=== PATIENT | female | born 1975 | race Caucasian/White ===

== ENCOUNTER 2017-08-30 18:59 | Emergency (ER) | payer BC ==
[2017-08-30] MEDS ORDERED: ACETAMINOPHEN 325 MG TABLET PO ONE (19:10)
[2017-08-30] MEDS ORDERED: ACETAMINOPHEN 325 MG TABLET ONE (19:50)
[2017-08-30] MEDS ORDERED: ONDANSETRON HCL INJ/PF 4 MG/2 ML SDV IV ONE (20:11)
[2017-08-30] MEDS ORDERED: KETOROLAC TROMETHAMINE INJ/PF 30 MG/1 ML SDV IV ONE (20:11)
[2017-08-30] MEDS ORDERED: MORPHINE SULFATE 10 MG/ML INJ IV ONE ×2 (20:11→23:34)
--- NOTE | 2017-08-30 20:14 | ER Document Report ---
ED General - General Chief Complaint: Abdominal Pain Stated Complaint: ABDOMINAL PAIN Time Seen by Provider: 08/30/17 20:03 TRAVEL OUTSIDE OF THE [place] IN LAST 30 DAYS: No - HPI Notes: Patient is a 42-year-old female no significant past medical history who presents to the ED complaining of right lower abdominal pain, occasional right back pain, pain with urination 1 day. Patient also has associated nausea without vomiting. Patient states that her symptoms started pretty quickly last night. Patient states that her pain is intermittent and comes in waves. Patient states that urinating makes her pain worse. She has not noticed any other blood in her urine. She denies any surgical history to her abdomen. She is still able to eat and drink, but does have a decreased p.o. intake. She is otherwise having normal bowel movements. Denies any drug allergies. Denies any previous history of kidney stones. Denies any headache, fever, neck pain, URI, sore throat, chest pain, palpitations, syncope, cough, shortness of breath , wheeze, dyspnea, vomiting/diarrhea, urinary retention, loss of control of bowel or bladder, numbness/tingling, saddle anesthesia, muscle paralysis/ weakness, or rash. - Related Data Allergies/Adverse Reactions: No Known Allergies Allergy (Unverified 08/30/17 19:02) Past Medical History - Social History Smoking Status: Unknown if Ever Smoked Family History: Reviewed & Not Pertinent Review of Systems - Review of Systems -: Yes All other systems reviewed and negative Physical Exam - Vital signs Vitals: Temp Pulse Resp BP Pulse Ox 99.4 F 105 H 18 141/78 H 99 08/30/17 19:24 08/30/17 19:24 08/30/17 19:24 08/30/17 19:24 08/30/17 19:24 - Notes Notes: PHYSICAL EXAMINATION: GENERAL: Well-appearing, well-nourished and in no acute distress. LUNGS: Breath sounds clear to auscultation bilaterally and equal. No wheezes rales or rhonchi. HEART: Regular rate and rhythm without murmurs, rubs, gallops. ABDOMEN: Soft, nontender, nondistended abdomen. No guarding, no rebound. No masses appreciated. Normal bowel sounds present. No CVA tenderness bilaterally. No tenderness at Mcburney point. luna negative. Musculoskeletal: FROM to passive/active. Strength 5+/5. Extremities: No cyanosis, clubbing, or edema b/l. Peripheral pulses 2+. Capillary refill less than 3 seconds. NEUROLOGICAL: Normal speech, normal gait. Normal sensory, motor exams PSYCH: Normal mood, normal affect. SKIN: Warm, Dry, normal turgor, no rashes or lesions noted. Course - Re-evaluation Re-evalutation: 08/31/17 01:41 Patient is an afebrile, well-hydrated, 42-year-old female who presents to the ED with right lower abdominal pain, suspect from her dermoid of the right ovary. Vitals are acceptable. PE is otherwise unremarkable. Patient has no significant tachycardia, tachypnea, or hypoxia. She does have an elevated white blood cell count, but no other signs of infection. CMP and urinalysis were unremarkable for any acute pathology. See CT scan result was recommended the ultrasound to further evaluate for any ovarian torsion. Patient is tolerating p.o. without any difficulties. Patient states that she is feeling better than she was upon arrival. Reviewed this case with Dr. Esqueda. Advised outpatient work up with OBGYN. I will send her home with a Ikanos dispense pack and Soft Tissue Regenerationfran. Conservative measures otherwise for symptoms. Low suspicion based on work up today for acute appendicitis, bowel obstruction, acute cholecystitis , acute cholangitis, perforated diverticulitis, incarcerated hernia, pancreatitis, perforated ulcer, peritonitis, sepsis, pelvic inflammatory disease , tubo-ovarian abscess, ovarian torsion, or other systemic emergent condition at this time. Patient is aware that her condition can change from initial presentation and she needs to monitor symptoms closely and seek medical attention if any acute changes. Conservative measures otherwise for symptoms. Recheck with OBGYN in 2-3 days. Recheck with your PCM in 2-3 days. Return to the ED with any worsening/concerning symptoms otherwise as reviewed in discharge. Patient is in agreement. - Vital Signs Vital signs: Temp Pulse Resp BP Pulse Ox 98.8 F 62 16 114/69 100 08/30/17 21:06 08/30/17 21:06 08/30/17 21:06 08/30/17 21:06 08/30/17 21:06 - Laboratory Result Diagrams: 08/30/17 20:40 08/30/17 20:40 Laboratory results interpreted by me: 08/30/17 08/30/17 20:40 20:40 WBC 15.4 H Seg Neutrophils % 79.3 H Lymphocytes % 12.5 L Absolute Neutrophils 12.2 H Urine Ketones 20 H Discharge - Discharge Clinical Impression: Dermoid cyst of right ovary Condition: Stable Disposition: HOME, SELF-CARE Instructions: Ovarian Cyst ([facility]) Additional Instructions: Maintain fluid intake Proper hygenic technique Keep the skin clean Tylenol/ibuprofen as needed Return immediately if symptoms worsen F/u with your PCM in 2-3 days for a recheck Schedule an appointment with ADMISSIONS CONSULTANT for further evaluation and management, call tomorrow to schedule Return to the ED with any development of MALLOY/fever, trouble with vision, eye redness, worsening pain, urethral discharge, urinary retention, blood in the urine, flank pain, abdominal pain, n/v, Chest Pain, shortness of breath, joint pains, trouble breathing, or any other worsening/concerning symptoms as needed otherwise. Prescriptions: Ondansetron [Zofran Odt 4 mg Tablet] 1 - 2 tab PO Q4H PRN #15 tab.rapdis PRN Reason: For Nausea/Vomiting Referrals: BLANE DIANE MD [ACTIVE STAFF] - Follow up in 3-5 days
[2017-08-30 20:51] LABS: ABSOLUTE LYMPHOCYTES (AUTO) 1.9 10^3/uL (0.5-4.7); ABSOLUTE MONOCYTES (AUTO) 1.2 10^3/uL (0.1-1.4); ABSOLUTE NEUT (AUTO) 12.2 10^3/uL (1.7-8.2); BASOPHILS % (AUTO) 0.3 % (0-2); EOSINOPHILS % (AUTO) 0.2 % (0-6); HEMOGLOBIN 15.5 g/dL (12.0-15.5); LYMPHOCYTES % (AUTO) 12.5 % (13-45); MEAN CORPUSCULAR HEMOGLOBIN 33.3 pg (27.0-33.4); MEAN CORPUSCULAR HGB CONC 34.4 g/dL (32.0-36.0); MEAN CORPUSCULAR VOLUME 97 fl (80-97); MONOCYTES % (AUTO) 7.7 % (3-13); PLATELET COUNT 315 10^3/uL (150-450); RED BLOOD COUNT 4.66 10^6/uL (3.72-5.28); RED CELL DISTRIBUTION WIDTH 13.1 % (11.5-14.0); SEGMENTED NEUTROPHILS % (AUTO) 79.3 % (42-78); TOTAL CELLS COUNTED % (AUTO) 100 %; WHITE BLOOD COUNT 15.4 10^3/uL (4.0-10.5)
[2017-08-30 20:56] LABS: APPEARANCE,URINE CLEAR; BILIRUBIN,URINE NEGATIVE (NEGATIVE); COLOR,URINE YELLOW; GLUCOSE, URINE NEGATIVE (NEGATIVE); KETONES,URINE 20 mg/dL (NEGATIVE); LEUKOCYTE ESTERASE,URINE NEGATIVE (NEGATIVE); NITRITE,URINE NEGATIVE (NEGATIVE); PROTEIN,URINE NEGATIVE (NEGATIVE); URINE SPECIFIC GRAVITY 1.011; UROBILINOGEN,URINE NEGATIVE mg/dL (<2.0)
[2017-08-30 21:03] LABS: ALANINE AMINOTRANSFERASE 27 U/L (9-52); ALBUMIN 4.7 g/dL (3.5-5.0); ALKALINE PHOSPHATASE 73 U/L (38-126); ANION GAP 13 (5-19); ASPARTATE AMINO TRANSFERASE 19 U/L (14-36); BILIRUBIN,DIRECT 0.3 mg/dL (0.0-0.4); BILIRUBIN,TOTAL 0.5 mg/dL (0.2-1.3); BLOOD UREA NITROGEN 16 mg/dL (7-20); CALCIUM 10.2 mg/dL (8.4-10.2); CARBON DIOXIDE 27 mmol/L (22-30); CHLORIDE 100 mmol/L (98-107); GLUCOSE 105 mg/dL (75-110); POTASSIUM 3.9 mmol/L (3.6-5.0); SODIUM 140.2 mmol/L (137-145); TOTAL PROTEIN 7.5 g/dL (6.3-8.2)
--- NOTE | 2017-08-30 22:10 | RADIOLOGY REPORT (SQ) ---
EXAM DESCRIPTION: CT ABD/PELVIS WITH IV ONLY COMPLETED DATE/TIME: 08/30/2017 9:58 pm REASON FOR STUDY: RLQ pain COMPARISON: None. TECHNIQUE: CT scan of the abdomen and pelvis performed using helical scanning technique with dynamic intravenous contrast injection. No oral contrast. Images reviewed with lung, soft tissue, and bone windows. Reconstructed coronal and sagittal MPR images reviewed. Delayed images for evaluation of the urinary system also acquired. All images stored on PACS. All CT scanners at this facility use dose modulation, iterative reconstruction, and/or weight based d osing when appropriate to reduce radiation dose to as low as reasonably achievable (ALARA). [facility]: Dose Right [facility]: CareDose [facility]: Dose Right [facility]: Teradose 4D [facility]: [employer] CONTRAST TYPE AND DOSE: contrast/concentration: Isovue 370.00 mg/ml; Total Contrast Delivered: 71.0 ml; Total Saline Delivered: 36.0 ml RENAL FUNCTION: None required. The patient is less than 50 years old. RADIATION DOSE: CT Rad equipment meets quality standard of care and radiation dose reduction techniq ues were employed. CTDIvol: 5.1 mGy. DLP: 489 mGy-cm.. LIMITATIONS: None. FINDINGS: LOWER CHEST: No significant findings. No nodules or infiltrates. LIVER: Normal size. No masses. No dilated ducts. SPLEEN: Normal size. No focal lesions. PANCREAS: No masses. No significant calcifications. No adjacent inflammation or peripancreatic fluid collections. Pancreatic duct not dilated. GALLBLADDER: No identified stones by CT criteria. No inflammatory changes to suggest cholecystitis. ADRENAL GLANDS: No significant masses or asymmetry. RIGHT KIDNEY AND URETER: Multiple tiny low attenuating lesions too small to adequately characterize b ut statistically represent benign cysts. No solid masses. No significant calcifications. No hydr onephrosis or hydroureter. LEFT KIDNEY AND URETER: Multiple tiny low attenuating lesions too small to adequately characterize bu t statistically represent benign cysts. No solid masses. No significant calcifications. No hydro nephrosis or hydroureter. AORTA AND VESSELS: Atherosclerotic calcifications greater than expected for age. No aneurysm. No dis section. Renal arteries, SMA, celiac without stenosis. RETROPERITONEUM: No retroperitoneal adenopathy, hemorrhage or masses. BOWEL AND PERITONEAL CAVITY: No masses or inflammatory changes. No free fluid or peritoneal masses. APPENDIX: Normal. PELVIS: Multiple fat containing masses within the right ovary compatible with dermoid cysts. The lar gest measures 4.3 cm. No free fluid. Normal bladder. ABDOMINAL WALL: No masses. No hernias. BONES: No significant or acute findings. OTHER: No other significant finding. IMPRESSION: NO ACUTE INFLAMMATORY CHANGE IDENTIFIED WITHIN THE ABDOMEN OR PELVIS. APPENDIX IS [place] L. RIGHT OVARIAN DERMOIDS WITH THE LARGEST MEASURING 4.3 CM. RECOMMEND FOLLOW-UP GYNECOLOGIC CONSULTATI ON. IF THERE IS ANY SUSPICION FOR TORSION THEN ULTRASOUND IS RECOMMENDED FOR FURTHER EVALUATION. ATHEROSCLEROTIC DISEASE GREATER THAN EXPECTED FOR AGE. CORRELATE WITH CARDIOVASCULAR RISK FACTORS. TECHNICAL DOCUMENTATION: JOB ID: [id number] Quality ID # [id number]: Final reports with documentation of one or more dose reduction techniques (e.g., Au tomated exposure control, adjustment of the mA and/or kV according to patient size, use of iterative reconstruction technique) 2010 [id number]- All Rights Reserved Reading location - IP/workstation name: [email or web address]
--- NOTE | 2017-08-31 01:19 | RADIOLOGY REPORT (SQ) ---
EXAM DESCRIPTION: Complete pelvic ultrasound CLINICAL HISTORY: 42 years Female, eval for torsion, rt side COMPARISON: None. TECHNIQUE: Complete pelvic ultrasound with transvaginal imaging. FINDINGS: The uterus measures 9.5 x 5.3 x 4.5 cm. Endometrial thickness of 1.2 cm. Cervical length of 2.8 cm. No myometrial masses. Left ovary is not identified. No free pelvic fluid. The right ovary measures 6.1 x 5.1 x 3.9 cm. There is a 2.2 cm cyst in the right ovary which is almost certainly benign. No follow-up necessary. There is a solid 4.7 x 4.4 x 3.5 cm area with color Doppler flow compatible with dermoid seen on previous CT. Arterial and venous blood flow is identified within the right ovary on limited color and spectral Doppler imaging. IMPRESSION: 1. There is a 4.7 cm solid nodule with internal blood flow in the right ovary compatible with a dermoid as identified on previous CT. Pelvic MRI with contrast recommended. 2. Blood flow is identified in the right ovary. 3. The left ovary is not identified.
[2017-08-31] MEDS ORDERED: HYDROCODONE/ACETAMINOPHEN 5-325 MG (6 TAB/ER DISP) PO PRN (01:45)
[2017-08-31] MEDS ORDERED: ONDANSETRON 4 MG TAB.RAPDIS PO ONE (02:14)
[2017-08-31 02:24] VITALS: BP 116/67
== END 2017-08-31 02:25 | disposition home or self-care (01) ==
LOC: ER 18:59
DX: D27.0 Benign neoplasm of right ovary (principal); R11.0 Nausea; R10.31 Right lower quadrant pain; M54.9 Dorsalgia, unspecified; R30.0 Dysuria; D72.829 Elevated white blood cell count, unspecified
CPT/HCPCS: 96376; 99284; 96374; 96375; 36415; 85025; 80053; 81001; 76830; 93976; 74177; S0119; J1885; J2270; J2405

== ENCOUNTER 2017-11-19 05:25 | Day surgery (SDC) | payer BC ==
[2017-11-13 11:24] LABS: HEMATOCRIT 42.1 % (36.0-47.0); HEMOGLOBIN 14.5 g/dL (12.0-15.5); MEAN CORPUSCULAR HEMOGLOBIN 33.5 pg (27.0-33.4); MEAN CORPUSCULAR HGB CONC 34.4 g/dL (32.0-36.0); MEAN CORPUSCULAR VOLUME 97 fl (80-97); PLATELET COUNT 297 10^3/uL (150-450); RED BLOOD COUNT 4.33 10^6/uL (3.72-5.28); RED CELL DISTRIBUTION WIDTH 13.6 % (11.5-14.0); WHITE BLOOD COUNT 14.6 10^3/uL (4.0-10.5)
[2017-11-13 11:41] LABS: ALANINE AMINOTRANSFERASE 25 U/L (9-52); ALBUMIN 4.2 g/dL (3.5-5.0); ALKALINE PHOSPHATASE 67 U/L (38-126); ANION GAP 9 (5-19); ASPARTATE AMINO TRANSFERASE 14 U/L (14-36); BILIRUBIN,DIRECT 0.2 mg/dL (0.0-0.4); BILIRUBIN,TOTAL 0.3 mg/dL (0.2-1.3); BLOOD UREA NITROGEN 17 mg/dL (7-20); CALCIUM 9.5 mg/dL (8.4-10.2); CARBON DIOXIDE 25 mmol/L (22-30); CHLORIDE 106 mmol/L (98-107); GLUCOSE 80 mg/dL (75-110); POTASSIUM 4.3 mmol/L (3.6-5.0); SODIUM 140.3 mmol/L (137-145); TOTAL PROTEIN 6.6 g/dL (6.3-8.2)
[2017-11-13 11:42] LABS: AMORPHOUS SEDIMENT,URINE 1+ /HPF; APPEARANCE,URINE CLOUDY; BILIRUBIN,URINE NEGATIVE (NEGATIVE); COLOR,URINE YELLOW; GLUCOSE, URINE NEGATIVE (NEGATIVE); KETONES,URINE NEGATIVE (NEGATIVE); LEUKOCYTE ESTERASE,URINE NEGATIVE (NEGATIVE); NITRITE,URINE NEGATIVE (NEGATIVE); PROTEIN,URINE NEGATIVE (NEGATIVE); URINE SPECIFIC GRAVITY 1.014; UROBILINOGEN,URINE NEGATIVE mg/dL (<2.0)
--- NOTE | 2017-11-13 22:13 | EKG REPORT ---
SEVERITY:- NORMAL ECG - SINUS RHYTHM : Confirmed by: Sue Gomez 13-Nov-2017 22:12:21
[~2017-11-19 05:25] MED LIST: CEFAZOLIN 1 GM/D5W RTU 1 GM/50 ML RTUPB IV PRN; LACTATED RINGERS 1000 ML IV PRN; LIDOCAINE 0.5% INJ-PF (5 MG/ML) 50 ML SDV SUBCUT PRN; SCOPOLAMINE HYDROBROMIDE 1.5 MG PATCH.TD72 TD PRN
[2017-11-19] MEDS ORDERED: LIDOCAINE 2% INJ-PF (20 MG/ML) 10 ML AMPUL ONE (06:48)
[2017-11-19] MEDS ORDERED: FENTANYL CITRATE INJ/PF 250 MCG/5 ML AMPULE ONE (06:48)
[2017-11-19] MEDS ORDERED: MIDAZOLAM 2 MG/2 ML INJ ONE (06:48)
[2017-11-19] MEDS ORDERED: ACETAMINOPHEN 1,000 MG/100 ML RTUPB IV ONE (06:49)
[2017-11-19] MEDS ORDERED: PROPOFOL INJ 200 MG/20 ML VIAL IV ONE (06:49)
[2017-11-19] MEDS ORDERED: PROMETHAZINE HCL INJ 25 MG/1 ML VIAL ONE (07:21)
[2017-11-19] MEDS ORDERED: MEPERIDINE HCL/PF INJ 25 MG/1 ML DISP.SYRIN IV PRN (08:02)
[2017-11-19] MEDS ORDERED: FENTANYL CITRATE INJ/PF 100 MCG/2 ML AMPUL IV PRN ×3 (08:02)
[2017-11-19] MEDS ORDERED: PROMETHAZINE HCL INJ 25 MG/1 ML VIAL IV PRN ×3 (08:02→09:51)
[2017-11-19] MEDS ORDERED: MORPHINE SULFATE 10 MG/ML INJ IV PRN (08:02)
[2017-11-19] MEDS ORDERED: DIPHENHYDRAMINE HCL 50 MG/ML VIAL IV PRN (08:02)
[2017-11-19] MEDS ORDERED: FENTANYL CITRATE INJ/PF 100 MCG/2 ML AMPUL ONE ×2 (08:51→10:03)
[2017-11-19] MEDS ORDERED: RINGERS SOLUTION,LACTATED 1,000 ML IV PRN (09:51)
[2017-11-19] MEDS ORDERED: ACETAMINOPHEN 325 MG TABLET PO PRN (09:51)
[2017-11-19] MEDS ORDERED: SIMETHICONE 80 MG TAB.CHEW PO PRN (09:51)
[2017-11-19] MEDS ORDERED: OXYCODONE-ACETAMINOPHEN 5-325 MG TABLET PO PRN ×2 (09:51)
[2017-11-19] MEDS ORDERED: HYDROMORPHONE HCL INJ/PF 2 MG/ML AMPULE IV PRN (09:51)
[2017-11-19] MEDS ORDERED: ACETAMINOPHEN 1,000 MG/100 ML RTUPB IV PRN (09:51)
--- NOTE | 2017-11-19 10:05 | Operative Report ---
Operative Report DATE OF SURGERY: 11/19/17 PREOPERATIVE DIAGNOSIS: Dermoid cyst on the right and frequent heavy menses. She also has atypical Pap which is HPV negative. POSTOPERATIVE DIAGNOSIS: Same OPERATION: Robotic assisted hysterectomy and right salpingo-oophorectomy SURGEON: BLANE DIANE ANESTHESIA: GA TISSUE REMOVED OR ALTERED: Uterus right ovary and fallopian tube COMPLICATIONS: None ESTIMATED BLOOD LOSS: 25 cc INTRAOPERATIVE FINDINGS: Large dermoid in the right ovary left ovary appeared normal PROCEDURE: Patient was taken the OR and placed in supine position. General anesthesia was induced. She is placed in dorsolithotomy position using Micha stirrups. Her abdomen perineum vagina were prepared and draped in sterile fashion. A Collado catheter was placed in the bladder for drainage. A weighted speculum was placed in the vagina and the anterior lip of the cervix was grasped with a tenaculum. A suture was placed in the anterior cervix. Uterus was sounded to 8 cm and a DrDoctor uterine manipulator was placed and balloon inflated. Next an incision was made 5 cm above the umbilicus. The fascia was grasped and elevated with Niko clamps. An incision was made in the fascia entering the abdominal cavity without incident. A blunt port was placed. Laparoscopy confirmed appropriate placement. The lateral ports were placed under laparoscopic visualization and a right lower quadrant port placed just for the insufflation device. The patient was placed in steep Trendelenburg and the robot was brought to the patient and docked. View of the pelvis was good. The dermoid could be seen on the right. The left ovary appeared normal. Both ureters could be seen peristalsing low in the pelvis away from the operative field. The infundibulopelvic pedicle on the patient's right was cauterized with bipolar cautery and cut with monopolar cautery. The round ligament on the right was cauterized with bipolar and cut with monopolar cautery. The anterior leaf of the broad ligament was incised. Posterior lip leaf the broad ligament was also incised. This exposed the uterine arteries on the patient's right which were cauterized with bipolar and cut with monopolar marco. This was done right next to the uterine cervix. Likewise the cardinal ligaments were cauterized with bipolar and cut with monopolar marco. Prior to this the bladder flap was developed by continuing the incision of the anterior broad ligament creating a bladder flap. Next attention was turned to left side. The utero-ovarian pedicle was cauterized bipolar and cut with monopolar marco. The round ligament was cauterized with bipolar and cut with monopolar marco. The bladder flap anteriorly was developed and incised joining the incision from the opposite side. The bladder flap fell easily outside the V care cup. The uterine arteries were cauterized with bipolar and cut with monopolar marco right next to the uterine cervix. The cardinal ligament as well was cauterized and cut with the bipolar and then monopolar marco. Next a circumferential incision was made at cervix at the V care cup. The uterus was removed through the vagina with the attached right ovary. The monopolar marco were replaced with a needle port cdl a driver. The vaginal cuff was then closed with a V lock suture. The initial suture was placed at the anterior vaginal cuff starting at the right corner. The stitch incorporated anterior vaginal cuff cuff lateral vaginal sidewall posterior vaginal cuff. A running suture was then placed from right to left incorporating anterior vaginal Coso to posterior vaginal mucosa. Upon reaching the left angle anterior vaginal mucosa lateral vaginal sidewall posterior vaginal cuff were included in the suture. 3 additional bites were taken moving back medially in the stitch was cut. The pelvis was irrigated and suctioned free of fluid. Hemostasis was assured at all pedicles. The robot was undocked from the patient. Under laparoscopic visualization the ports were removed. The gas was allowed to escape from the abdomen. The umbilical port and scope were removed in unison. There was no bleeding at the vaginal cuff as the gas was allowed to escape from the abdomen. The fascia at the umbilicus was closed with a 2-0 Vicryl stitch. The skin at all 4 sites was closed with 4-0 undyed Vicryl stitch. Patient extubated in the OR and taken recovery room in stable condition.
[2017-11-19] MEDS: KETOROLAC TROMETHAMINE INJ/PF 30 MG/1 ML SDV IV SCH ×2 (11:30→16:12)
[2017-11-19] MEDS ORDERED: DEXAMETHASONE SOD PHOSPHATE INJ 4 MG/1 ML VIAL ONE (11:57)
[2017-11-19] MEDS ORDERED: ONDANSETRON HCL INJ/PF 4 MG/2 ML SDV ONE (11:57)
[2017-11-19] MEDS ORDERED: ROCURONIUM BROMIDE INJ 50 MG/5 ML VIAL IV ONE (11:57)
[2017-11-19] MEDS ORDERED: KETOROLAC TROMETHAMINE 60 MG/2 ML SDV ONE (11:57)
[2017-11-19 15:59] LABS: HEMATOCRIT 39.6 % (36.0-47.0); HEMOGLOBIN 13.5 g/dL (12.0-15.5); MEAN CORPUSCULAR HEMOGLOBIN 33.2 pg (27.0-33.4); MEAN CORPUSCULAR HGB CONC 34.1 g/dL (32.0-36.0); MEAN CORPUSCULAR VOLUME 98 fl (80-97); PLATELET COUNT 250 10^3/uL (150-450); RED BLOOD COUNT 4.06 10^6/uL (3.72-5.28); RED CELL DISTRIBUTION WIDTH 13.3 % (11.5-14.0); WHITE BLOOD COUNT 11.8 10^3/uL (4.0-10.5)
[2017-11-19 16:21] LABS: ANION GAP 13 (5-19); BLOOD UREA NITROGEN 10 mg/dL (7-20); CALCIUM 8.9 mg/dL (8.4-10.2); CARBON DIOXIDE 20 mmol/L (22-30); CHLORIDE 106 mmol/L (98-107); POTASSIUM 4.6 mmol/L (3.6-5.0); SODIUM 138.8 mmol/L (137-145)
[2017-11-19 16:22] LABS: GLUCOSE 129 mg/dL (75-110)
--- NOTE | 2017-11-19 16:29 | PDOC DISCHARGE SUMMARY ---
General - Admit/Disc Date/PCP Admission Date/Primary Care Provider: PUMA PENG MD Discharge Date: 11/19/17 - Discharge Diagnosis (1) Heavy menstrual bleeding Is this a current diagnosis for this admission?: Yes (2) Dermoid cyst Is this a current diagnosis for this admission?: Yes - Additional Information Home Medications: Aspirin [Aspirin EC] 81 mg PO QPM 11/13/17 Diphenhydramine HCl [Benadryl] 25 mg PO ASDIR PRN 11/13/17 Ibuprofen 400 mg PO ASDIR PRN 11/13/17 Lisinopril [Zestril] 20 mg PO QPM 11/13/17 Rosuvastatin Calcium [Crestor 5 mg Tablet] 5 mg PO QPM 11/13/17 History of Present Illness Patient complains of: Heavy menses and a dermoid cyst History of Present Illness: JOSIANE NIELSEN is a 42 year old female Hospital Course Hospital Course: She was admitted and underwent a robotic hysterectomy as requested. The procedure went well. Postoperatively she is doing well tolerating a regular diet and ambulating. She wished to go home this evening. We will have her follow-up in 1 week. Physical Exam - Physical Exam Vital Signs: Temp Pulse Resp BP Pulse Ox 97.4 F 64 16 134/74 H 99 11/19/17 15:37 11/19/17 15:37 11/19/17 15:37 11/19/17 15:37 11/19/17 15:37 Intake & Output 11/18/17 11/19/17 11/20/17 06:59 06:59 06:59 Intake Total 0 1840 Output Total 1525 Balance 0 315 Weight 67.59 kg General appearance: PRESENT: no acute distress - Her dressing is dry on abdominal exam, well-developed, well-nourished Result Laboratory Results: 11/19/17 15:35 11/19/17 15:35 11/19/17 11/19/17 15:35 15:35 WBC 11.8 H RBC 4.06 Hgb 13.5 Hct 39.6 MCV 98 H MCH 33.2 MCHC 34.1 RDW 13.3 Plt Count 250 Sodium 138.8 Potassium 4.6 Chloride 106 Carbon Dioxide 20 L Anion Gap 13 BUN 10 Creatinine 0.52 Est GFR ( Amer) > 60 Est GFR (Non-Af Amer) > 60 Glucose 129 H Calcium 8.9 Impressions: She is doing well the night of surgery and wishes to go home. Plan Discharge Plan: Home to rest with followup next week. Percocet written for pain. Time Spent: Less than 30 Minutes
[2017-11-19 16:31] VITALS: BP 127/78
[2017-11-19] MEDS ORDERED: (PENDING PHARMACY ID) (Lisinopril [Zestril] 20 MG) PO SCH (18:00)
[2017-11-19] MEDS ORDERED: LISINOPRIL 10 MG TABLET PO SCH (18:00)
== END 2017-11-19 17:00 | disposition home or self-care (01) ==
LOC: OROUT 05:25 → 2N 10:58 → OROUT 17:00
PROVIDERS: ATTEND Obstetrics & Gynecology
DX: D27.0 Benign neoplasm of right ovary (principal); N80.0 Endometriosis of uterus; D25.9 Leiomyoma of uterus, unspecified; N83.8 Other noninflammatory disorders of ovary, fallopian tube and broad ligament; N92.0 Excessive and frequent menstruation with regular cycle; I10 Essential (primary) hypertension; E78.5 Hyperlipidemia, unspecified; E07.9 Disorder of thyroid, unspecified; F17.210 Nicotine dependence, cigarettes, uncomplicated; Z79.82 Long term (current) use of aspirin; Z79.899 Other long term (current) drug therapy
CPT/HCPCS: 58571; S2900; 36415; 80048; 80053; 81001; 81025; 840; 85027; 86850; 86900; 86901; 88307; 93005; 93010; 94799; J0131; J0690; J1100; J1885; J2250; J2405; J2550; J2704; J3010; J3490